=== PATIENT | male | born 1955 | race Caucasian/White ===

== ENCOUNTER 2017-03-12 02:23 | Inpatient (IN) | payer OTHER ==
[~2017-03-12] VITALS: Ht 170.2 cm; Wt 79.4 kg
[~2017-03-12 02:23] MED LIST: ASPIRIN81 M4 PO; ATORVASTATIN CA20 M1 PO; COZAAR25 M1 PO
--- NOTE | 2017-03-12 08:10 | Admission Core Measures ---
Admission Meds I reviewed the following Meds: Current Medications Sig/Nela Start time Last Medication Dose Stop Time Status Admin Acetaminophen 975 MG ONCE 03/12 NR (Tylenol) 03/12 2359 Cefazolin Sodium 2,000 MG ONCE 03/12 NR (Kefzol-Ancef Inj) 03/12 2359 Oxycodone HCl 10 MG ONCE 03/12 0000 NR (Roxicodone) 03/12 2359 Acute Coronary Syndrome Inclusion Criteria ACS Diagnosis No Inpatient Core Measures LDL Reminder: If No, please order W/I first 24hr of stay Congestive Heart Failure Inclusion Criteria CHF Diagnosis No Cerebrovascular accident Inclusion Criteria CVA/TIA Diagnosis No Inpatient Core Measures Bedside Swallow Eval Reminder: If BSE failed, place ST order Antithrombotic Reminder: Order Antithrombotic Medication by end of day 2 Antithrombotic Reminder: Document Reason Antithrombotic Not ordered by end of day 2 AFIB/Flutter Reminder: If Present, add to problem list AFIB/Flutter Reminder: Order Anticoag Medication for pts with AFIB/Flutter Atherosclerosis Reminder: If Present, add to problem list LDL Reminder: If No, please order W/I first 24hr of stay PT Order Reminder: If No, please order Venous thromboembolism Inpatient Core Measures VTE Risk Factors: Age > 40, Surgery No [facility] VTE prophylaxis d/t No contraindications No VTE Pharm Prophylaxis d/t No contraindications Inclusion Criteria - Per Current guidelines, there needs to be overlap - treatment for the first 5 days of Warfarin therapy. - Parenteral Anticoagulation (IV or SC) needs to be - given along with Warfarin therapy. VTE Diagnosis No VTE Type NONE VTE Confirmed by (Test) NONE Problem List As ranked by this Provider includes Assessment & Plan 1. S/P total hip arthroplasty HOME MEDS Home Med List Aspirin (Aspirin*) 81 MG TAB.CHEW 1 TAB PO DAILY HEART HEALTH (Reported) Atorvastatin Calcium 20 MG TABLET 1 TAB PO DAILY CHOL (Reported) Losartan Potassium (Cozaar) 25 MG TABLET 1 TAB PO DAILY BP (Reported)
[2017-03-12] MEDS ORDERED: MS CONTIN15 M2 PO (08:25)
[2017-03-12] MEDS ORDERED: COLACE100 M1 PO (08:25)
[2017-03-12] MEDS ORDERED: ASPIRIN325 M2 PO (08:25)
[2017-03-12] MEDS ORDERED: DILAUDID4 M1 PO (08:25)
[2017-03-12] MEDS ORDERED: MIRALAX17 G1 PO (08:25)
--- NOTE | 2017-03-12 08:28 | Patient Discharge Instructions ---
Discharge Instructions General Discharge Information You were seen/treated for: Left hip degenerative joint disease You had these procedures: Left total hip arthroplasty Watch for these problems: Significantly increased pain, difficulty ambulating or temperatures over 101 Increased redness or drainage from incision No bath, but you may shower: Yes Other wound care: Daily dry dressing change Special Instructions: See printed information booklet Diet Continue normal diet: Yes Activity Activity Self Limited: Yes Other activity limits: Ambulate with walker as instructed by physical therapy Do not drive or operate machinery until off all pain medications and okay with your surgeon Acute Coronary Syndrome Inclusion Criteria At DC or during hospital stay patient has or had the following: ACS DIAGNOSIS No Discharge Core Measures Meds if any: Prescribed or Continued at Discharge Meds if any: NOT Prescribed or Continued at Discharge Congestive Heart Failure Inclusion Criteria At DC or during hospital stay patient has or had the following: CHF DIAGNOSIS No Discharge Core Measures Meds if any: Prescribed or Continued at Discharge Meds if any: NOT Prescribed or Continued at Discharge Cerebrovascular accident Inclusion Criteria At DC or during hospital stay patient has or had the following: CVA/TIA Diagnosis No Discharge Core Measures Meds if any: Prescribed or Continued at Discharge Meds if any: NOT Prescribed or Continued at Discharge Venous thromboembolism Inclusion Criteria VTE Diagnosis No VTE Type NONE VTE Confirmed by (Test) NONE Discharge Core Measures - Per Current guidelines, there needs to be overlap - treatment for the first 5 days of Warfarin therapy. - If discharged on Warfarin prior to 5 days of - overlap therapy, the patient will need to be - assessed for post discharge needs including - *Post discharge parental anticoagulation - *Warfarin and/or parental anticoagulation education - *Follow up date to check INR post discharge At least 5 days overlap therapy as Inpatient No Meds if any: Prescribed or Continued at Discharge Note: Overlap Therapy is Warfarin and Anticoagulant Meds if any: NOT Prescribed or Continued at Discharge
--- NOTE | 2017-03-12 08:30 | Surg Short-stay <48hrs Dis Sum ---
Visit Information Visit Dates Admission Date: 03/12/17 Discharge Date: 03/12/17 Surgical Short Stay DC Summary Admission Diagnosis: Left hip degenerative joint disease Final Diagnosis: Same Procedure(s): Left total hip arthroplasty Summary/Significant Findings: The patient was admitted on 03/12/2017. Later that day the patient was brought to the operating theater and underwent a left total hip arthroplasty. Postoperative the patient progressed as expected, his pain is under adequate control, and he ambulated safely with physical therapy. The patient voided postoperatively and tolerated a diet. The patient was discharged with an uneventful hospital course. Condition at Discharge: Stable Discharge Disposition: home health services Discharge instructions provided to patient/family: Yes Post discharge follow-up plan: Call the office to be seen in 6 weeks or earlier if need be
--- NOTE | 2017-03-12 10:30 | RADIOLOGY REPORT ---
EXAMINATION: XR HIP, LEFT CLINICAL INFORMATION: Left hip replacement COMPARISON: None TECHNIQUE: Two views of the left hip. FINDINGS: The components of the left total hip arthroplasty exhibit normal position and alignment. The femoral head prosthesis is well centered in the acetabular cup. The femoral stem is appropriately positioned in the medullary cavity of the proximal femoral diaphysis. No acute periprosthetic fracture. There is postoperative soft tissue emphysema of the hip. IMPRESSION: Satisfactory position and alignment of components of the left total hip arthroplasty.
[2017-03-12 11:02] VITALS: BP 118/66
--- NOTE | 2017-03-12 13:20 | PN- Orthopedic ---
Subjective Subjective: POST-OP NOTE: No complaints. Tolerating clears. Denies nausea. Not yet out of bed, but expecting PT to return shortly to walk. No dizziness. No shortness of breath. No chest pains. Due to void prior to discharge. Objective Vital Signs and I&Os Vital Signs Date Time Temp Pulse Resp B/P B/P Pulse O2 O2 Flow FiO2 Mean Ox Delivery Rate 03/12 1102 67 18 118/66 97 Room Air Intake & Output 03/12 1600 03/12 0800 03/12 0000 03/11 1600 03/11 0800 03/11 0000 Intake Total Output Total Balance Patient 175 lb Weight Weight Estimated Measurement Method Physical Exam: General - alert & oriented x 3. comfortable. no acute distress. Lungs - clear bilaterally. no w/r/r. Cardiac - s1s2. reg. Abdomen - soft. nontender. Extremities - warm bilaterally. left hip dressing c/d/i. no hematoma. no drains. nvi. calves soft and nontender b/l. athrombics in place. Current Medications: Current Medications Sig/Nela Start time Last Medication Dose Route Stop Time Status Admin Acetaminophen 0 .STK-MED ONE 03/12 0658 DC PO Acetaminophen 975 MG ONCE 03/12 0000 DC PO 03/12 2359 Aspirin 325 MG BID 03/12 1000 AC PO Atorvastatin Calcium 20 MG 1700 03/12 1700 AC PO Cefazolin Sodium 1,000 MG IQ8 03/12 1600 AC IV 03/13 0001 Cefazolin Sodium 2,000 MG ONCE 03/12 0000 DC IV 03/12 2359 Dextrose/Sodium 1,000 ML .[id number] 03/12 1100 AC 03/12 Chloride IV 1114 Docusate Sodium 100 MG BID 03/12 1000 AC PO Hydromorphone HCl 2 MG Q4P PRN 03/12 1100 AC PO Hydromorphone HCl 4 MG Q4P PRN 03/12 1100 AC PO Ketorolac 15 MG Q8P PRN 03/12 1100 AC Tromethamine IV 03/14 0812 Losartan Potassium 25 MG DAILY 03/12 1000 AC PO Morphine Sulfate 2 MG Q2P PRN 03/12 1100 AC IV Ondansetron HCl 4 MG Q6P PRN 03/12 1100 AC IV Oxycodone HCl 0 .STK-MED ONE 03/12 0658 DC PO Oxycodone HCl 10 MG ONCE 03/12 0000 DC PO 03/12 2359 Polyethylene Glycol 17 GM DAILY 03/12 1000 AC PO Assessment/Plan Assessment/Plan This 62 year old white male with hx htn, bph, is POD#0 s/p left total hip replacement (anterior approach) for unilateral primary osteoarthritis, left hip advance diet as tolerated pain control as needed asa bid beka-operative ancef awaiting PT eval due to void prior to discharge home likely d/c home if cleared PT & able to void will d/w Core Measures/Miscellaneous Venous Thromboembolism VTE Risk Factors: Age > 40, Surgery VTE Contraindications: No Contraindications VTE Diagnosis: No VTE Type: NONE VTE Confirmed by (Test): NONE Beta Luan Is Beta Luan a Home Med? No Antibiotics Is Patient on Antibiotics? Yes If Yes: prophylaxis
[2017-03-12 14:02] VITALS: BP 125/70
--- NOTE | 2017-03-12 17:30 | Operative Report ---
Operative/Inv Procedure Report Surgery Date: 03/12/17 Name of Procedure: Left total hip replacement Pre-Operative Diagnosis: Primary left hip DJD Post-Operative Diagnosis: Same Estimated Blood Loss: 300 Surgeon/Tiger Machine Operator: CARLOS AGARWAL,JULIA Cowan Anesthesia: block Operative/Procedure Note Note: Description of Procedure: The patient was taken to the operating room and positively identified. After induction of spinal anesthesia and administration of appropriate pre-operative antibiotics, the patient was positioned supine on the operating room table and all bony prominences were well padded. After performing a surgical timeout, the left lower extremity was prepped and draped in the usual sterile fashion. A direct anterior approach was made to the left hip. The incision was carried sharply through superficial soft tissues to the level of the fascia. Meticulous hemostasis was maintained with Bovie electocautery. The fascia over the tensor fascia roman muscle was opened sharply and the interval between the TFL and the sartorius was entered bluntly taking care to stay lateral to the lateral femoral cutaneous nerve. Retractors were placed around the femoral neck and the pericapsular fat was identified. The ascending branches of the lateral femoral circumflex vessels were identified and carefully coagulated. The pericapsular fat and anterior capsule were then resected. A napkin ring osteotomy was performed and the femoral head was removed without difficulty. Attention was then turned to the acetabulum. After appropriate placement of retractors, the acetabulum was exposed. Soft tissue was cleaned from the acetabular margin and notch. Overhanging osteophytes were removed and the teardrop was exposed. The acetabulum was then sequentially reamed to accept a 58 mm [place] Tritanium hemispherical solid back shell. This was impacted into place in the appropriate position and fitted with a 36 mm Trident X3 zero degree polyethylene insert. Attention was then turned to the femur. After performing the appropriate ligament releases, the proximal femur was exposed. It was then sequentially broached to accept a size 8 [place] Secur-Fit Advanced 132 stem. This was trialed for leg length and stability. The trial component was removed and the final component was impacted into place. The trunnion was carefully cleaned and fit with a 36 mm, +0 Biolox delta ceramic femoral head. The hip was reduced and put through a full range of motion and found to be stable. The articular space was then irrigated with sterile saline. The periarticular soft tissues were infilitrated with Marcaine. The fascial layer was closed with interrupted #1 vicryl suture and the skin was re-approximated with interrupted 2 -0 vicryl. The skin was closed with a running 3-0 V-Lock suture. Steri-strips and a sterile dressing were applied. The patient was awakened and taken to the recovery room in satisfactory condition.
== END 2017-03-12 15:01 | disposition home health service (06) | DRG 470 ==
LOC: SDA 02:23 → ENRESERV 09:59 → 2NA 10:48
PROVIDERS: ADMIT Orthopaedic Surgery
PROC: 0SRB04A Replacement of Left Hip Joint with Ceramic on Polyethylene Synthetic Substitute, Uncemented, Open Approach (ICD-10-PCS; principal; 2017-03-12)
DX: M16.12 Unilateral primary osteoarthritis, left hip (principal); I10 Essential (primary) hypertension; E78.5 Hyperlipidemia, unspecified
CPT/HCPCS: 2NASP; 73502-LT; 88304; 97110-GO; 97116-GO; 97161-GP; 97530-GO; J0690; J0735; J2405; J7042